=== PATIENT | male | born 1960 | race Caucasian/White ===

== ENCOUNTER 2021-08-02 13:22 | Emergency (ER) | payer SELFPAY ==
[~2021-08-02] VITALS: Ht 170.2 cm; Wt 72.0 kg
[2021-08-02 16:19] LABS: BASOPHILS % 0.5 % (0.0-2.0); HEMOGLOBIN. 13.5 g/dL (14.0-18.0); LYMPHOCYTES % 14.5 % (20.0-50.0); MEAN CORPUSCULAR HEMOGLOBIN 30.1 pg (28.0-32.0); MEAN CORPUSCULAR VOLUME 89.3 fL (80.0-94.0); MEAN PLATELET VOLUME 8.6 fl (7.4-10.4); MONOCYTES % 6.6 % (2.0-8.0); NEUTROPHILS % 78.4 % (40.0-76.0); PLATELET 195 x1000/uL (130-400); RED BLOOD CELL COUNT 4.48 mill/uL (4.7-6.1); RED CELL DISTRIBUTION WIDTH 14.3 % (11.6-14.6)
[2021-08-02 16:21] LABS: CHLORIDE 97 mEq/L (98-107)
[2021-08-02 16:29] LABS: ETHANOL BLOOD < 10 mg/dL
[2021-08-02] MEDS ORDERED: ONDANSETRON 4MG ODT PO ONE (16:45)
[2021-08-02 19:30] VITALS: BP 134/66
== END 2021-08-02 20:34 | disposition home or self-care (01) ==
LOC: ER 13:22
DX: K29.20 Alcoholic gastritis without bleeding (principal); F10.10 Alcohol abuse, uncomplicated; R51.9 Headache, unspecified; Z98.890 Other specified postprocedural states; Y90.0 Blood alcohol level of less than 20 mg/100 ml
CPT/HCPCS: 36415; 70450; 80053; 80320; 83690; 85025; 99284; Q0162; G0480

== ENCOUNTER 2021-08-02 20:27 | Emergency (ER) | payer SELFPAY ==
[~2021-08-02] VITALS: Ht 157.5 cm; Wt 67.6 kg
[2021-08-03 01:23] LABS: BASOPHILS % 0.4 % (0.0-2.0); EOSINOPHILS % 0.6 % (0.0-5.0); HEMATOCRIT. 41.1 % (42.0-52.0); HEMOGLOBIN. 13.8 g/dL (14.0-18.0); LYMPHOCYTES % 17.6 % (20.0-50.0); MEAN CORPUSCULAR HEMOGLOBIN 30.8 pg (28.0-32.0); MEAN CORPUSCULAR VOLUME 91.7 fL (80.0-94.0); MEAN PLATELET VOLUME 8.7 fl (7.4-10.4); MONOCYTES % 12.5 % (2.0-8.0); NEUTROPHILS % 68.9 % (40.0-76.0); PLATELET 169 x1000/uL (130-400); RED BLOOD CELL COUNT 4.48 mill/uL (4.7-6.1); RED CELL DISTRIBUTION WIDTH 14.6 % (11.6-14.6)
[2021-08-03 01:35] LABS: CHLORIDE 100 mEq/L (98-107)
[2021-08-03 01:45] LABS: ETHANOL BLOOD < 10 mg/dL
[2021-08-03 06:04] LABS: *AMPHETAMINES SCREEN URINE NEGATIVE (NEGATIVE); *BARBITURATES SCREEN URINE NEGATIVE (NEGATIVE); *BENZODIAZEPINES SCREEN URINE NEGATIVE (NEGATIVE); *COCAINE SCREEN URINE NEGATIVE (NEGATIVE); CANNABINOID URINE SCREEN NEGATIVE (NEGATIVE); METHADONE URINE SCREEN NEGATIVE (NEGATIVE); OPIATES URINE SCREEN NEGATIVE (NEGATIVE); PHENCYCLIDINE URINE SCREEN NEGATIVE (NEGATIVE)
[2021-08-03] MEDS: RISPERIDONE 1MG TABLET PO SCH ×2 (09:00→21:14)
[2021-08-03] MEDS: TRAZODONE HCL 50MG TABLET PO SCH (21:14)
[2021-08-04] MEDS: RISPERIDONE 1MG TABLET PO SCH ×2 (08:59→21:45)
[2021-08-04] MEDS ORDERED: GABAPENTIN 300MG CAPSULE PO ONE (13:00)
[2021-08-04] MEDS: TRAZODONE HCL 50MG TABLET PO SCH (21:44)
[2021-08-04 22:30] VITALS: BP 123/78
[2021-08-05] MEDS ORDERED: MULTIVITAMINS,THER W-MINERALS TABLET PO SCH (09:00)
[2021-08-05] MEDS ORDERED: THIAMINE HCL 100MG TABLET PO SCH (09:00)
== END 2021-08-04 22:59 | disposition short-term general hospital (02) ==
LOC: ER 20:27
DX: R45.851 Suicidal ideations (principal); Z20.822 Contact with and (suspected) exposure to COVID-19; Z98.890 Other specified postprocedural states
CPT/HCPCS: 80053; 80305; 80307; 80320; 80329; 85025; 99285; C9803; U0003; U0005; G0480